=== PATIENT | male | born 1980 ===

== ENCOUNTER 2019-02-05 13:29 | Emergency (ER) | payer SELFPAY ==
[2019-02-05 13:47] VITALS: TEMP 98.2
[2019-02-05] MEDS ORDERED: Sodium Chloride 0.9% 1,000 ML IV ONE ×2 (14:35→14:37)
[2019-02-05 15:10] LABS: BASO % 0.2 % (0.0-2.0); EOS % 0.1 % (0.0-4.0); HEMOGLOBIN 16.7 g/dL (12.0-18.0); LYMPH # 0.4 K/uL (1.0-4.3); LYMPH % 3.6 % (20.0-40.0); MEAN CELL VOLUME 88.3 fL (80.0-94.0); MEAN CORPUSCULAR HEMOGLOBIN 29.5 pg (27.0-31.0); MEAN CORPUSCULAR HGB CONC 33.5 g/dL (33.0-37.0); MEAN PLATELET VOLUME 8.4 fL (7.2-11.7); MONO # 0.4 K/uL (0.0-0.8); MONO % 3.6 % (0.0-10.0); NEUT % 92.5 % (50.0-75.0); PLATELET COUNT 249 K/uL (130-400); RBC 5.67 Mil/uL (4.40-5.90); RED CELL DISTRIBUTION WIDTH 13.6 % (11.5-14.5); WHITE BLOOD COUNT 11.9 K/uL (4.8-10.8)
[2019-02-05 15:24] LABS: ALB/GLOB RATIO 1.5 (1.0-2.1); ALBUMIN 4.8 g/dL (3.5-5.0); ALT/SGPT 31 U/L (21-72); AST/SGOT 29 U/L (17-59); BLOOD UREA NITROGEN 16 mg/dL (9-20); CALCIUM 9.5 mg/dl (8.6-10.4); GFR NON-AFRICAN AMERICAN > 60; LIPASE 18 U/L (23-300)
--- NOTE | 2019-02-05 15:33 | C.PDOC ---
History Of Present Illness 38 y/o male presents to ED complaining of abdominal pain, vomiting, and diarrhea since 3am this morning. Patient states he had fevers, felt weak, and passed out. He denies any nausea, chills, cough, or other complaints. Time Seen by Provider: 02/05/19 14:01 Chief Complaint (Nursing): Abdominal Pain History Per: Patient History/Exam Limitations: no limitations Onset/Duration Of Symptoms: Hrs Current Symptoms Are (Timing): Still Present Location Of Pain/Discomfort: Diffuse Quality Of Discomfort: Cramping Associated Symptoms: Vomiting, Diarrhea Past Medical History Reviewed: Historical Data, Nursing Documentation, Vital Signs Vital Signs: Last Vital Signs Temp 98.2 F 02/05/19 13:43 Pulse 75 02/05/19 13:43 Resp 18 02/05/19 13:43 BP 116/76 02/05/19 13:43 Pulse Ox 97 02/05/19 13:43 - Medical History PMH: No Chronic Diseases Surgical History: No Surg Hx Family History: States: No Known Family Hx - Social History Hx Alcohol Use: No Hx Substance Use: No - Immunization History Hx Tetanus Toxoid Vaccination: No Hx Influenza Vaccination: No Hx Pneumococcal Vaccination: No Review Of Systems Except As Marked, All Systems Reviewed And Found Negative. Constitutional: Positive for: Fever, Weakness. Negative for: Chills Cardiovascular: Negative for: Chest Pain Respiratory: Negative for: Cough, Shortness of Breath Gastrointestinal: Positive for: Vomiting, Abdominal Pain, Diarrhea. Negative for: Nausea Genitourinary: Negative for: Dysuria, Hematuria Musculoskeletal: Negative for: Back Pain Physical Exam - Physical Exam Appears: Non-toxic, No Acute Distress Skin: Warm, Dry Head: Atraumatic, Normacephalic Eye(s): bilateral: Normal Inspection Oral Mucosa: Moist Neck: Supple Cardiovascular: Rhythm Regular, No Murmur Respiratory: Normal Breath Sounds, No Rales, No Rhonchi, No Wheezing Gastrointestinal/Abdominal: Soft, Tenderness (mild diffuse tenderness) Extremity: Bilateral: Atraumatic, Normal ROM Neurological/Psych: Oriented x3, Normal Speech Gait: Steady ED Course And Treatment - Laboratory Results Result Diagrams: 02/05/19 15:05 02/05/19 15:05 Lab Results: Total Bilirubin 1.0 mg/dL (0.2-1.3) 02/05/19 15:05 AST 29 U/L (17-59) 02/05/19 15:05 ALT 31 U/L (21-72) 02/05/19 15:05 Alkaline Phosphatase 89 U/L (38-126) 02/05/19 15:05 Total Protein 8.0 g/dL (6.3-8.3) 02/05/19 15:05 Albumin 4.8 g/dL (3.5-5.0) 02/05/19 15:05 Globulin 3.3 gm/dL (2.2-3.9) 02/05/19 15:05 Albumin/Globulin Ratio 1.5 (1.0-2.1) 02/05/19 15:05 Lipase 18 U/L (23-300) L 02/05/19 15:05 Lab Interpretation: Normal O2 Sat by Pulse Oximetry: 97 (RA) Pulse Ox Interpretation: Normal Progress Note: Treated with IVF NSS, zofran and bentyl. On re-evaluation abdomen soft in no distress. feeling better Reassessment Condition: Improved Medical Decision Making Medical Decision Making: Plan: --Labs --UA --Bentyl 20 mg IM --IV fluids --Zofran 4 mg IVP Disposition Counseled Patient/Family Regarding: Studies Performed, Diagnosis, Need For Followup - Disposition Referrals: [facility] [Outside] [facility] [Outside] Disposition: HOME/ ROUTINE Disposition Time: 16:30 Condition: IMPROVED Additional Instructions: Follow up with clinic for further evaluation Prescriptions: Ondansetron ODT [Zofran ODT] 1 odt PO BID PRN #6 odt PRN Reason: Nausea/Vomiting Instructions: Contusion (DC) Forms: [employer] (N[place]ian) - POA Present On Arrival: None - Clinical Impression Clinical Impression: Abdominal pain, Gastroenteritis - PA / ACCESS SERVICES LIBRARIAN / Resident Statement MD/DO has reviewed & agrees with the documentation as recorded. - Scribe Statement The provider has reviewed the documentation as recorded by the Scribe Lorin Cameron All medical record entries made by the Scribe were at my direction and personally dictated by me. I have reviewed the chart and agree that the record accurately reflects my personal performance of the history, physical exam, medical decision making, and the department course for this patient. I have also personally directed, reviewed, and agree with the discharge instructions and disposition.
[2019-02-05 15:49] LABS: EOSINOPHIL 1 % (0-4); LYMPHOCYTE 9 % (20-40); MONOCYTE 3 % (0-10); NEUTROPHIL 87 % (50-75); PLATELET ESTIMATE NORMAL (NORMAL); TOTAL CELLS COUNTED 100
[2019-02-05 16:48] VITALS: BP 128/88; PULSE 74; RESP 17
[2019-02-05 18:37] VITALS: O2SAT 97
== END 2019-02-05 16:47 | disposition home or self-care (01) ==
LOC: C.ER 13:29
DX: K52.9 Noninfective gastroenteritis and colitis, unspecified (principal); R10.9 Unspecified abdominal pain
CPT/HCPCS: 80053; 82948; 83690; 85025; 96372; 96374; 99283; J2405; J7030